=== PATIENT | female | born 1965 ===

== ENCOUNTER → 2021-05-27 | Outpatient (CLI) | payer OTHER ==
--- NOTE | 2021-05-27 12:36 | RAD ---
AP and Lateral Views of the Chest 05/27/2021 10:46 AM Indication: Reason: COPD, ASTHMA / Spl. Instructions: / History: Comparison: none Findings: Mild apical lucency and interstitial coarsening are noted. There is good flattening of the diaphragm. Findings most likely reflect COPD. There is no focal consolidation or infiltrate identifie d. The cardiomediastinal silhouette is within normal limits. There is no evidence of pneumothorax or pleural effusion. No acute osseous abnormalities are identified. Impression: 1.No evidence of acute cardiopulmonary process. 2. Probable changes of COPD Electronically signed by: Toby Dennis MD (05/27/2021 12:33 PM) [id number]
== END ==
LOC: PF 09:42
PROVIDERS: ATTEND Family Medicine
DX: Z02.71 Encounter for disability determination (principal); J44.9 Chronic obstructive pulmonary disease, unspecified
CPT/HCPCS: 71046; 94060; 94640; 94664